=== PATIENT | female | born 1985 | race Asian ===

== ENCOUNTER 2022-07-02 01:20 | Emergency (ER) | payer OTHER ==
[~2022-07-02] VITALS: Ht 167.6 cm; Wt 64.0 kg
[2022-07-02] MEDS ORDERED: SODIUM CHLORIDE 0.9% 1000ML BAG (SEPSIS BOLUS) IV ONE (02:15)
[2022-07-02 02:37] LABS: BASOPHILS % 0.2 % (0.0-2.0); EOSINOPHILS % 0.8 % (0.0-5.0); HEMOGLOBIN. 14.4 g/dL (12.0-16.0); MEAN CORPUSCULAR HEMOGLOBIN 31.1 pg (28.0-32.0); MEAN CORPUSCULAR VOLUME 90.8 fL (81.0-99.0); MEAN PLATELET VOLUME 8.8 fl (7.4-10.4); MONOCYTES % 5.5 % (2.0-8.0); NEUTROPHILS % 81.5 % (40.0-76.0); PLATELET 265 x1000/uL (130-400); RED BLOOD CELL COUNT 4.63 mill/uL (4.2-5.4); RED CELL DISTRIBUTION WIDTH 12.9 % (11.6-14.6)
[2022-07-02 02:54] LABS: CHLORIDE 112 mEq/L (98-107)
[2022-07-02] MEDS ORDERED: ONDANSETRON HCL 4MG/2ML INJ IV ONE (03:15)
[2022-07-02 03:18] LABS: HCG SCREEN NEGATIVE
[2022-07-02 04:55] LABS: CLARITY URINE TURBID (CLEAR); COLOR URINE DARK YELLOW (YELLOW); KETONES URINE 1+ (NEGATIVE); LEUKOCYTE ESTERASE URINE 1+ (NEGATIVE); NITRITE URINE NEGATIVE (NEGATIVE); OCCULT BLOOD URINE NEGATIVE (NEGATIVE); PH URINE 5.5 (4.5-8.0); PROTEIN URINE 2+ (NEGATIVE); SPECIFIC GRAVITY URINE 1.032 (1.005-1.030)
[2022-07-02 06:00] VITALS: BP 127/71
[2022-07-02] MEDS ORDERED: IOHEXOL-350 100 ML BOTTLE ONE (07:11)
== END 2022-07-02 06:10 | disposition home or self-care (01) ==
LOC: ER 01:34
DX: R55 Syncope and collapse (principal); N39.0 Urinary tract infection, site not specified; I95.9 Hypotension, unspecified; J45.909 Unspecified asthma, uncomplicated
CPT/HCPCS: 36415; 71045; 71275; 80053; 81003; 83605; 83880; 84145; 84484; 84703; 85025; 85379; 87040; 87086; 93005; 96361; 96374; 99285; J2405; J7030; Q9967; Z7610